=== PATIENT | female | born 1985 | race Hispanic/Latino ===

== ENCOUNTER 2018-11-05 12:38 | Outpatient (CLI) | payer BC ==
--- NOTE | 2018-11-05 13:41 | RAD ---
FOUR VIEWS OF THE RIGHT KNEE: COMPARISON: None. HISTORY: Knee pain. FINDINGS: Four views of the right knee show no evidence of acute fracture or dislocation. No knee effusion is seen. No degenerative changes are present. IMPRESSION: Unremarkable exam. POS: [facility]
--- NOTE | 2018-11-05 13:42 | RAD ---
FOUR VIEWS LEFT KNEE: COMPARISON: None. HISTORY: Knee pain. FINDINGS: Four views of the left knee show no evidence of acute fracture or dislocation. No degenerative munguia es are seen. No soft tissue swelling is seen. No knee effusion is present. IMPRESSION: Unremarkable exam. POS: [facility]
== END 2018-11-05 12:39 | disposition home or self-care (01) ==
LOC: BICRAD 12:38
PROVIDERS: ATTEND Family Medicine
DX: M25.561 Pain in right knee (principal); M25.562 Pain in left knee

== ENCOUNTER 2018-11-13 13:11 | Outpatient (CLI) | payer BC ==
--- NOTE | 2018-11-13 14:47 | ULT ---
Exam: Thyroid ultrasound HISTORY: Hypothyroidism. Oral pharyngeal dysphagia. COMPARISON: None FINDINGS: Thyroid isthmus measures 0.2 cm. Right thyroid lobe measures 4.9 x 1.3 x 1.3 cm. Left ovary measures 4.6 x 1.2 x 1.4 cm. 0.1 cm anechoic focus in the upper pole the right thyroid lobe of doubtful clinical significance IMPRESSION: Unremarkable thyroid ultrasound.
== END 2018-11-13 13:12 | disposition home or self-care (01) ==
LOC: BICULT 13:11
PROVIDERS: ATTEND Family Medicine
DX: E03.9 Hypothyroidism, unspecified (principal); R13.12 Dysphagia, oropharyngeal phase
CPT/HCPCS: 76536

== ENCOUNTER 2019-01-06 10:14 | Outpatient (CLI) | payer BC ==
--- NOTE | 2019-01-06 11:16 | ULT ---
GALLBLADDER ULTRASOUND: HISTORY: Epigastric pain. COMPARISON: None. FINDINGS: The head and proximal body of the pancreas have a normal echotexture. The remainder of the pancreas is obscured by bowel gas. Visualized IVC is unremarkable. Hepatic parenchyma has a normal echotexture. No hepatic masses or intrahepatic biliary dilatation. Contour of the hepatic margin is maintained. Right hepatic lobe measures 12.3 cm. The right kidney has a normal cortical echotexture. No hydronephrosis. The right kidney measures 6. 2 x 4.7 x 11.1 cm. No sonographic evidence of cholelithiasis, gallbladder wall thickening, or pericholecystic fluid. Ne gative Villarreal's sign. Common bile duct diameter is 0.5 cm. IMPRESSION: Unremarkable right upper quadrant ultrasound. POS: [facility]
== END 2019-01-06 10:15 | disposition home or self-care (01) ==
LOC: BICULT 10:14
PROVIDERS: ATTEND Internal Medicine Gastroenterology
DX: R13.12 Dysphagia, oropharyngeal phase (principal); R10.13 Epigastric pain; R14.2 Eructation; B96.81 Helicobacter pylori [H. pylori] as the cause of diseases classified elsewhere
CPT/HCPCS: 76705